=== PATIENT | female | born 2000 | race Caucasian/White ===

== ENCOUNTER 2021-02-21 22:08 | Emergency (ER) | payer OTHER, SELFPAY ==
[2021-02-21 22:11] VITALS: BP 136/74; PULSE 108; RESP 18; TEMP 36.8; O2SAT 97; BMI 20.3
[2021-02-21 22:38] LABS: Appearance Urine CLEAR; Color Urine YELLOW; Glucose Urine UA NEG (NEG); Leukocyte Esterase Urine NEG (NEG); Nitrite Urine NEG (NEG); Specific Gravity - Urine >= 1.030 (1.005-1.025); Urine Blood NEG (NEG); Urine Ketones >=80 MG/DL (NEG); Urine Protein TRACE MG/DL (NEG-TRACE)
[2021-02-21 22:40] LABS: UPreg QC Valid YES; Urine Pregnancy NEGATIVE (NEGATIVE)
[2021-02-21 22:41] LABS: COVID-19 Test Negative (Negative); IDNOW Serial# 9DD0AD1C
[2021-02-21 23:04] LABS: MANUAL DIFF FLAG NO
[2021-02-21 23:06] LABS: Basophils Percent Auto 0.3 % (0-2); Eosinophils Percent Auto 0.4 % (0-4); Hematocrit 35.4 % (37-47); Hemoglobin 12.6 g/dl (12.0-16.0); Imm Gran Abs Auto 0.03 X10*3/uL (0.00-0.03); Imm Gran Pct Auto 0.3 % (0.0-0.4); Lymphocytes Absolute Auto 1.5 X10*3/uL (1.2-4.9); Lymphocytes Percent Auto 15.1 % (20-40); Mean Corpuscular HGB Conc 35.6 g/dl (31.0-35.0); Mean Corpuscular Hemoglobin 29.9 pg (27.0-33.0); Mean Corpuscular Volume 83.9 fL (80-98); Mean Platelet Volume 9.6 fL (9.4-12.3); Monocytes Absolute Auto 0.4 X10*3/uL (0.1-1.2); Monocytes Percent Auto 4.4 % (2-11); Neutrophils Percent Auto 79.5 % (45-73); Platelet Count 197 X10*3/uL (160-400); Red Blood Count 4.22 X10*6/uL (4.20-5.50); Red Cell Distribution Width 11.4 % (11.0-16.0)
[2021-02-21 23:22] LABS: Alanine Aminotransferase 18 U/L (0-31); Albumin Level 4.4 g/dL (3.5-5.0); Alkaline Phosphatase 70 U/L (39-117); Anion Gap 12 (12-20); Aspartate Amino Transferase 19 U/L (5-31); Bilirubin Direct 0.2 mg/dL (0.0-0.5); Bilirubin Total 0.4 mg/dL (0.0-1.0); Blood Urea Nitrogen 13 mg/dL (9-16); Calcium 9.3 mg/dL (8.4-10.2); Carbon Dioxide 22 mmol/L (22-29); Chloride 106 mmol/L (96-108); Creatinine Clr Calc Pharmacy 109.9; Estimated Glomerular Filt Rate > 60; Glucose Random 106 mg/dL (60-115); Lipase 27 U/L (8-78); Potassium 4.2 mmol/L (3.3-5.1); Sodium 136 mmol/L (135-145); Total Protein 7.4 g/dL (6.5-8.0)
--- NOTE | 2021-02-21 23:32 | ED_ITS ---
HPI - General Adult General Chief complaint: Nausea/Vomiting/Diarrhea Stated complaint: Flu like Time Seen by Provider: 02/21/21 23:08 Source: patient Mode of arrival: ambulatory Limitations: no limitations History of Present Illness HPI narrative: sore throat, myalgias, vomiting, diarrhea. Patient vomited blood the last time. Patient had only one shot of COVID vaccine, Had covid last May. Onset (ago): hour(s) Severity: mild Related Data Previous Rx's Medication Instructions Recorded ondansetron HCl 4 mg tablet 4 mg PO Q8H PRN #10 tab 02/21/21 (Zofran) pantoprazole 40 mg tablet,delayed 40 mg PO DAILY #20 tab 02/21/21 release (Protonix) Allergies Allergy/AdvReac Type Severity Reaction Status Date / Time No Known Allergies Allergy Verified 02/21/21 22:11 Review of Systems Constitutional: Constitutional: Reports no additional constitutional co mplaints Eyes: Eyes: Reports no additional eye complaints ENT: Denies dizziness Cardiovascular: Cardiovascular: Reports no additional cardiovascular complaints Respiratory: Respiratory: Reports as per HPI Gastrointestinal: Gastrointestinal: Reports no additional gastrointestinal complaints Genitourinary: Genitourinary: Reports no additional female genitourinary complaints Musculoskeletal: Musculoskeletal: Reports no additional musculoskeletal complaints Integumentary/Breasts: Skin/Breast: Denies rash Neurologic: Reports system reviewed and no additional complaints, except as documented, Denies dizziness and Denies Sensory deficit (Neuro) Psychiatric: Psychiatric: Denies anxiety [facility] Past Medical History Medical History No known health problems Social History Social History Advance Directives: No Advance Directives Information Provided: Yes Physical Exam Vital Signs: Vital Signs: Last Vital Signs Temp 98.2 F 02/21/21 22:11 Pulse 108 H 02/21/21 22:11 Resp 18 02/21/21 22:11 BP 136/74 02/21/21 22:11 Pulse Ox 97 02/21/21 22:11 Body Mass Index 20.3 Const: General: healthy appearing Nutritional Appearance: average body habitus Orientation/consciousness: oriented to person and patient oriented x3 Limitations: no limitations HENMT: Head: Yes normal to inspection Ears: external ears normal General nose exam: Normal external nose present Mouth: Normal oral and palatal mucosa present and oropharynx normal Throat: Yes posterior oropharynx normal Eyes: General: appearance normal, both eyes and all related structures Neck: Other: supple Neck: Yes normal visual inspection Chest: Chest palpation & inspection: normal inspection of the chest Resp: Auscultation: clear to auscultation bilaterally Cardio: Jugular venous distension: no JVD Rate: regular rate Rhythm: regular rhythm Heart sounds: S1 normal heart sound present and S2 normal heart sound present GI: Inspection: Yes normal to inspection Palpation (GI): Soft to palpation, nontender and No hepatosplenomegaly present Auscultation: normal bowel sounds : General: Yes no CVA tenderness Back/Spine/Pelvis: Back: no CVA tenderness Skin: General skin exam: no rashes or lesions noted Neuro: General: oriented to person and patient oriented x3 Cranial nerves: Yes CN's II-XII intact bilaterally Motor exam (neuro): 5/5 motor strength present throughout Sensory Exam: No Sensory deficit (Neuro) Extrem: General: Yes normal to inspection Psych: Appearance: grossly normal Course Reevaluation(s) Reevaluation #1: no black stool, no blood in stool, picture shows blood on the crackers she threw up, not mixed in. My impression is ba gimenez tear will dc on zofran and protonix Time: 23:41 Medical Decision Making Lab Data Result diagrams: 02/21/21 22:57 02/21/21 22:57 Labs: Lab Results 02/21/21 02/21/21 02/21/21 Range/Units 22:20 22:28 22:28 WBC (4.8-10.8) X10*3/uL RBC (4.20-5.50) X10*6/uL Hgb (12.0-16.0) g/dl Hct (37-47) % MCV (80-98) fL MCH (27.0-33.0) pg MCHC (31.0-35.0) g/dl RDW (11.0-16.0) % Plt Count (160-400) X10*3/uL MPV (9.4-12.3) fL Immature Gran % (Auto) (0.0-0.4) % Neut % (Auto) (45-73) % Lymph % (Auto) (20-40) % [place] % (Auto) (2-11) % Eos % (Auto) (0-4) % Baso % (Auto) (0-2) % Lymph # (Auto) (1.2-4.9) X10*3/uL [place] # (Auto) (0.1-1.2) X10*3/uL Eos # (Auto) (0.0-0.4) X10*3/uL Baso # (Auto) (0.0-0.2) X10*3/uL Abs Immat Gran (auto) (0.00-0.03) X10*3/uL Absolute Neuts (auto) (2.0-8.3) X10*3/uL Absolute Nucleated RBC (0.0-0.012) X10*3/uL Nucleated RBC % (auto) (0.0-0.2) /100WBC Sodium (135-145) mmol/L Potassium (3.3-5.1) mmol/L Chloride (96-108) mmol/L Carbon Dioxide (22-29) mmol/L Anion Gap (12-20) BUN (9-16) mg/dL Creatinine (0.5-1.4) mg/dL Estim Creat Clear Calc Estimated GFR Random Glucose (60-115) mg/dL Calcium (8.4-10.2) mg/dL Total Bilirubin (0.0-1.0) mg/dL Direct Bilirubin (0.0-0.5) mg/dL AST (5-31) U/L ALT (0-31) U/L Alkaline Phosphatase (39-117) U/L Total Protein (6.5-8.0) g/dL Albumin (3.5-5.0) g/dL Lipase (8-78) U/L Urine Color YELLOW Urine Appearance CLEAR Urine pH 6.0 (5.0-8.0) Ur Specific [place] >= 1.030 H (1.005-1.025) Urine Protein TRACE (NEG-TRACE) MG/DL Urine Glucose (UA) NEG (NEG) MG/DL Urine Ketones >=80 (NEG) MG/DL Urine Blood NEG (NEG) Urine Nitrite NEG (NEG) Ur Leukocyte Esterase NEG (NEG) Urine Test NEGATIVE (NEGATIVE) COVID-19 (KRISTAL) Negative (Negative) COVID-19 Clin Com See Note 02/21/21 02/21/21 Range/Units 22:57 22:57 WBC 10.0 (4.8-10.8) X10*3/uL RBC 4.22 (4.20-5.50) X10*6/uL Hgb 12.6 (12.0-16.0) g/dl Hct 35.4 L (37-47) % MCV 83.9 (80-98) fL MCH 29.9 (27.0-33.0) pg MCHC 35.6 H (31.0-35.0) g/dl RDW 11.4 (11.0-16.0) % Plt Count 197 (160-400) X10*3/uL MPV 9.6 (9.4-12.3) fL Immature Gran % (Auto) 0.3 (0.0-0.4) % Neut % (Auto) 79.5 H (45-73) % Lymph % (Auto) 15.1 L (20-40) % [place] % (Auto) 4.4 (2-11) % Eos % (Auto) 0.4 (0-4) % Baso % (Auto) 0.3 (0-2) % Lymph # (Auto) 1.5 (1.2-4.9) X10*3/uL [place] # (Auto) 0.4 (0.1-1.2) X10*3/uL Eos # (Auto) 0.0 (0.0-0.4) X10*3/uL Baso # (Auto) 0.0 (0.0-0.2) X10*3/uL Abs Immat Gran (auto) 0.03 (0.00-0.03) X10*3/uL Absolute Neuts (auto) 8.0 (2.0-8.3) X10*3/uL Absolute Nucleated RBC 0.000 (0.0-0.012) X10*3/uL Nucleated RBC % (auto) 0.0 (0.0-0.2) /100WBC Sodium 136 (135-145) mmol/L Potassium 4.2 (3.3-5.1) mmol/L Chloride 106 (96-108) mmol/L Carbon Dioxide 22 (22-29) mmol/L Anion Gap 12 (12-20) BUN 13 (9-16) mg/dL Creatinine 0.76 (0.5-1.4) mg/dL Estim Creat Clear Calc 109.9 Estimated GFR > 60 Random Glucose 106 (60-115) mg/dL Calcium 9.3 (8.4-10.2) mg/dL Total Bilirubin 0.4 (0.0-1.0) mg/dL Direct Bilirubin 0.2 (0.0-0.5) mg/dL AST 19 (5-31) U/L ALT 18 (0-31) U/L Alkaline Phosphatase 70 (39-117) U/L Total Protein 7.4 (6.5-8.0) g/dL Albumin 4.4 (3.5-5.0) g/dL Lipase 27 (8-78) U/L Urine Color Urine Appearance Urine pH (5.0-8.0) Ur Specific [place] (1.005-1.025) Urine Protein (NEG-TRACE) MG/DL Urine Glucose (UA) (NEG) MG/DL Urine Ketones (NEG) MG/DL Urine Blood (NEG) Urine Nitrite (NEG) Ur Leukocyte Esterase (NEG) Urine Test (NEGATIVE) COVID-19 (RKISTAL) (Negative) COVID-19 Clin Com Discharge Plan Discharge Clinical Impression: Gastroenteritis, Ba-Gimenez tear Patient Disposition: Home, Self-Care Instructions: Ba-Gimenez Syndrome (ED) Prescriptions: New ondansetron HCl [Zofran] 4 mg tablet 4 mg PO Q8H PRN (Reason: nausea and vomiting) Qty: 10 RF: 0 pantoprazole [Protonix] 40 mg tablet,delayed release (DR/EC) 40 mg PO DAILY Qty: 20 RF: 0 Referrals: Physician,Unknown [Primary Care Provider] - 1 week Stand Alone Forms: Work/School Release
[2021-02-21] MEDS: Famotidine 20 MG TABLET PO (23:45)
[2021-02-21 23:47] VITALS: BP 111/65; PULSE 84; RESP 16; O2SAT 98
== END 2021-02-22 00:11 | disposition home or self-care (01) ==
LOC: HO.ED 23:59
PROVIDERS: Emergency Provider Emergency Medicine
DX: K52.9 Noninfective gastroenteritis and colitis, unspecified (principal); K22.6 Gastro-esophageal laceration-hemorrhage syndrome; R11.2 Nausea with vomiting, unspecified; Z20.822 Contact with and (suspected) exposure to COVID-19; Z79.899 Other long term (current) drug therapy
CPT/HCPCS: 36415; 80048; 80076; 81003; 81025; 83690; 85025; 87635; 99283; 99284

== ENCOUNTER 2022-08-26 19:28 | Emergency (ER) | payer OTHER, SELFPAY ==
--- NOTE | ~2022-08-26 | US_ITS ---
EXAMINATION: US VENOUS WITH DOPPLER UPPER EXTREMITY, RIGHT CLINICAL INFORMATION: Erythema and swelling. COMPARISON: None available. TECHNIQUE: Ultrasound of the upper extremity is performed using compression sonography and color and pulse Doppler flow with assessment of augmentation of flow. There is also imaging and Doppler assessment of the jugular and subclavian veins. Spectral analysis with color-flow imaging is performed. FINDINGS: There is noncompressible thrombus seen within the right mid to distal basilic vein segments. The right internal jugular, subclavian, axillary, brachial,, cephalic, radial and ulnar vein segments are patent. US/US venous duplex UE RT IMPRESSION: Noncompressible thrombus is demonstrated within the mid to distal right basilic vein segments. This critical result was discussed with Estephania Nurse Practitioner at 9:00 PM on 08/26/2022, and it was ascertained that the content and urgency of the report was understood at the time of direct communication.
[2022-08-26 19:41] VITALS: BP 136/81; PULSE 138; RESP 18; TEMP 37.7; O2SAT 99; BMI 21.1
--- NOTE | 2022-08-26 19:44 | ED.UPPEXIN ---
HPI - Extremity Injury (Upper) General Chief Complaint: Extremity Injury, Upper <RUI Tran - Last Filed: 08/26/22 19:46> Stated Complaint: R arm pain, tingling, no injury <RUI Tran - Last Filed: 08/26/22 19:46> Time Seen by Provider: 08/26/22 22:04 <RUI Tran - Last Filed: 08/26/22 19:46> Source: patient <Estephania Bourne NP - Last Filed: 08/27/22 00:35> Mode of arrival: ambulatory <Estephania Bourne NP - Last Filed: 08/27/22 00:35> Limitations: no limitations <Estephania Bourne NP - Last Filed: 08/27/22 00:35> History of Present Illness HPI narrative: 21 year female presents with right arm pain numbness tingling soreness and swelling that started about a week ago. Pain has gradually increased so has the swelling. She had an IV to the right antecubital space for general anesthesia for wisdom teeth removal. She noted this site to be tender after IV removal. <Estephania Bourne NP - Last Filed: 08/27/22 00:35> MD complaint: injury to: right and arm <Estephania Bourne NP - Last Filed: 08/27/22 00:35> Onset (ago): week(s) (1) <Estephania Bourne NP - Last Filed: 08/27/22 00:35> Other injuries: none <Estephania Bourne NP - Last Filed: 08/27/22 00:35> Handedness: right <Estephania Bourne NP - Last Filed: 08/27/22 00:35> Place: other (Medical procedure) <Estephania Bourne NP - Last Filed: 08/27/22 00:35> Severity: moderate <Estephania Bourne NP - Last Filed: 08/27/22 00:35> Severity scale (1-10): 7 <SHERIE Andrade Last Filed: 08/27/22 00:35> Relieving factors: immobilization <Estephania Bourne NP - Last Filed: 08/27/22 00:35> Exacerbating factors: movement of extremity <Estephnaia Bourne NP - Last Filed: 08/27/22 00:35> Context: other (IV start site) <Estephania Bourne NP - Last Filed: 08/27/22 00:35> Associated symptoms: numbness and other (Swelling) <Estephania Bourne NP - Last Filed: 08/27/22 00:35> Treatments prior to arrival: cold therapy <SHERIE Andrade Last Filed: 08/27/22 00:35> Related Data Home Medications: Previous Rx's Medication Instructions Recorded ondansetron HCl 4 mg tablet 4 mg PO Q8H PRN nausea and 02/21/21 (Zofran) vomiting #10 tabs pantoprazole 40 mg tablet,delayed 40 mg PO DAILY #20 tabs 02/21/21 release (Protonix) apixaban 5 mg (74 tabs) tablets in 5 mg PO BID #74 ea 08/26/22 a dose pack (Eliquis DVT-PE Treat 30D Start) <RUI Tran - Last Filed: 08/26/22 19:46> Allergies/Adverse Reactions: Allergies Allergy/AdvReac Type Severity Reaction Status Date / Time No Known Allergies Allergy Verified 02/21/21 22:11 <RUI Tran - Last Filed: 08/26/22 19:46> Review of Systems Review of Systems: Constitutional: No Fever, No Chills Cardiovascular: No Chest Pain, No SOB Respiratory: No Cough, No Dyspnea Gastrointestinal: No Nausea, No Vomiting, No Diarrhea, No abdominal Pain Genitourinary: No Dysuria, No Hematuria Musculoskeletal: positive right arm swelling and pain, No Myalgias, No Joint Swelling Skin: No Skin lacerations, No rash Neuro: No Weakness, positive right arm Numbness, positive right arm Paresthesias, No Loss of Consciousness, No Dizziness, No Headache <SHERIE Andrade Last Filed: 08/27/22 00:35> Yes all other systems are reviewed and are negative <SHERIE Andrade Last Filed: 08/27/22 00:35> PMFSH Past Medical History Attestation statement: The following information was validated with the patient. <SHERIE Andrade Last Filed: 08/27/22 00:35> Source: old records reviewed <Estephania Bourne NP - Last Filed: 08/27/22 00:35> Medical History: Medical History No known health problems <RUI Tran - Last Filed: 08/26/22 19:46> Social History Social History: Social History Advance Directives: No Advance Directives Information Provided: No <RUI Tran - Last Filed: 08/26/22 19:46> Physical Exam Vital Signs: Vital Signs: Last Vital Signs Temp 99.9 F 08/26/22 19:41 Pulse 138 H 08/26/22 19:41 Resp 18 08/26/22 19:41 BP 136/81 08/26/22 19:41 Pulse Ox 99 08/26/22 19:41 O2 Del Method Room Air 08/26/22 19:41 BMI result Body Mass Index 21.1 <RUI Tran - Last Filed: 08/26/22 19:46> Vital Signs: Last Vital Signs Temp 99.9 F 08/26/22 19:41 Pulse 138 H 08/26/22 19:41 Resp 18 08/26/22 19:41 BP 136/81 08/26/22 19:41 Pulse Ox 99 08/26/22 19:41 O2 Del Method Room Air 08/26/22 19:41 BMI result Body Mass Index 21.1 <Estephania Bourne NP - Last Filed: 08/27/22 00:35> Appearance: Alert. Oriented X3. Mild distress. Eyes: Pupils equal, round and reactive to light. Neck: Normal inspection. Neck supple. CVS: Normal heart rate and rhythm. Pulses normal. Respiratory: No respiratory distress. Breath sounds normal. Skin: Skin warm and dry. Normal skin color. Normal skin turgor. Extremities: Right extremity swollen from the antecubital space to the mid bicep. Bruising noted to the ulnar aspect from olecranon to mid biceps full range of motion to digits, wrist, brisk capillary refill equal pulses. Neurovascularly intact. Neuro: No motor deficit. No sensory deficit. Cranial nerves 2-12 intact. <Estephania Bourne NP - Last Filed: 08/27/22 00:35> Course Course Course Narrative: RME - 21 y/o female presents to the ER for evaluation of right upper arm pain, swelling, slight redness that started about 1 week ago. Had wisdom teeth out 2 weeks ago under anesthesia and had IV in that arm. Was on pain meds and NSAIDS post-op. Reports worsening swelling today and now has some tingling down into the lower arm. She is on OCP and worried about a blood clot. Tachycardic 110 in triage, anxious. Exam more c/w superficial thrombophelmbitis but will get US doppler to r/o DVT. <RUI Tran - Last Filed: 08/26/22 19:46> RME - 21 y/o female presents to the ER for evaluation of right upper arm pain, swelling, slight redness that started about 1 week ago. Had wisdom teeth out 2 weeks ago under anesthesia and had IV in that arm. Was on pain meds and NSAIDS post-op. Reports worsening swelling today and now has some tingling down into the lower arm. She is on OCP and worried about a blood clot. Tachycardic 110 in triage, anxious. Exam more c/w superficial thrombophelmbitis but will get US doppler to r/o DVT. 21:00 21-year-old female presented for a right arm swelling and pain, suspected to be phlebitis from an IV start site. Provider in triage ordered venous duplex of the right upper extremity. [facility] called to report DVT positive. Discussion with patient regarding history, patient is on control, no history of clotting factor deficiencies, is not immunocompromised, no other injuries reported. Patient does not report any shortness of breath, pain on inspiration, tachycardia, diaphoresis, dizziness, weakness the, changes in vision. Plan of care is to treat with Eliquis, will give 1st dose here, patient also does not have a primary care physician. Will refer to Dr. Martinez for vascular, and Dr. Leung for primary care is tablets minute. I did inform the patient that she may need to be on blood thinners for quite some time, and that she should follow-up with urgent care as well as Dr. Martinez. She does understand that it may take her several months to become established with a primary care. Patient agrees to discontinue control, understands instructions for Eliquis. Patient verbalized understanding of and agrees with plan of care discharge home. Verbalized understanding of signs and symptoms indicating need for emergent intervention. <Estephania oBurne NP - Last Filed: 08/27/22 00:35> Consultations Consultation #1: Michelle <Estephania Bourne NP - Last Filed: 08/27/22 00:35> Time: 22:45 <Estephania Bourne NP - Last Filed: 08/27/22 00:35> Medications Administered Discontinued Medications Generic Name Dose Route Start Last Admin Trade Name Freq PRN Reason Stop Dose Admin Apixaban 10 mg 08/26/22 22:32 08/26/22 22:39 Apixaban 5 Mg Tablet PO 08/26/22 22:33 10 mg ONCE ONE Administration <RUI Tran - Last Filed: 08/26/22 19:46> Medications Administered Discontinued Medications Generic Name Dose Route Start Last Admin Trade Name Freq PRN Reason Stop Dose Admin Apixaban 10 mg 08/26/22 22:32 08/26/22 22:39 Apixaban 5 Mg Tablet PO 08/26/22 22:33 10 mg ONCE ONE Administration <Estephania Bourne NP - Last Filed: 08/27/22 00:35> Medical Decision Making Differential Diagnosis Differential Diagnoses: The differential diagnosis associated with the presentation includes <Estephania Bourne NP - Last Filed: 08/27/22 00:35> DVT, phlebitis <Estephania Bourne NP - Last Filed: 08/27/22 00:35> Consult Healthcare Provider Management of the patient was discussed with: Wrapper Leaf Inspector <Estephania Bourne NP - Last Filed: 08/27/22 00:35> Dr. Martinez <Estephania Bourne NP - Last Filed: 08/27/22 00:35> Independent Interpretation I performed an independent interpretation of an: Ultrasound <Estephania Bourne NP - Last Filed: 08/27/22 00:35> Interpretation: EXAMINATION:? US VENOUS WITH DOPPLER UPPER EXTREMITY, RIGHT CLINICAL INFORMATION:? Erythema and swelling. COMPARISON:? None available. TECHNIQUE: Ultrasound of the upper extremity is performed using compression sonography and color and pulse Doppler flow with assessment of augmentation of flow. There is also imaging and Doppler assessment of the jugular and subclavian veins. Spectral analysis with color-flow imaging is performed. FINDINGS: There is noncompressible thrombus seen within the right mid to distal basilic vein segments. The right internal jugular, subclavian, axillary, brachial,, cephalic, radial and ulnar vein segments are patent. US/US venous duplex UE RT IMPRESSION: Noncompressible thrombus is demonstrated within the mid to distal right basilic vein segments. ? ? This critical result was discussed with Estephania Nurse Practitioner at 9:00 PM on 08/26/2022, and it was ascertained that the content and urgency of the report was understood at the time of direct communication. ? <Estephania Bourne NP - Last Filed: 08/27/22 00:35> Radiology Impression Discussion of test interpretation with radiology: I discussed test interpretation with the radiologist and I have reviewed the radiologist's reading. <Estephania Bourne NP - Last Filed: 08/27/22 00:35> Independent Historian Clinical information obtained from an independent historian. History obtained from or confirmed by: Parent <Estephania Bourne NP - Last Filed: 08/27/22 00:35> External Record Review External record reviewed: Outpatient record and Prior outpatient labs <SHERIE Andrade Last Filed: 08/27/22 00:35> Prescription Management I considered prescription management with: Other (Anticoagulation) <SHERIE Andrade Last Filed: 08/27/22 00:35> Discharge Plan Discharge Clinical Impression: Acute deep vein thrombosis (DVT) of right upper extremity <RUI Tran - Last Filed: 08/26/22 19:46> Patient Disposition: Home, Self-Care <RUI Tran - Last Filed: 08/26/22 19:46> Instructions: Deep Vein Thrombosis (ED), Deep Vein Thrombosis Prevention (ED) <RUI Tran - Last Filed: 08/26/22 19:46> Additional Instructions: Your evaluated for right arm pain and swelling. Venous duplex indicates a thrombus, DVT, in the right distal basilic vein. Please take Eliquis as directed. Follow-up with Dr. Martinez, vascular surgeon. Please call and request an appointment for evaluation. Please stop taking your control pills. You may need to find another method for contraception. Alternate Tylenol 650 mg every 6 hours and Motrin 600 mg every 6 hours as needed for pain and fever management. Consider taking these medications 3 hours apart so you have pain and fever management every 3 hours. Write down what time you take these medications to prevent accidental overdose. Motrin is the same medication as Advil and ibuprofen. Tylenol is the same medication as acetaminophen. For primary care, I have referred you to Dr. Leung at the [facility] walk-in [place]. You may present to urgent care for primary care needs until you become established as a patient. It may take several months for you to be established with a primary care. Thank you for choosing this emergency department for evaluation. Please follow-up with primary care physician as needed. Return to the emergency department for any new, concerning, or worsening symptoms. <RUI Tran - Last Filed: 08/26/22 19:46> Prescriptions: New Eliquis DVT-PE Treat 30D Start 5 mg (74 tabs) tablets,dose pack 5 mg PO BID Qty: 74 0RF Rx Instructions: Right arm DVT No Action ondansetron HCl [Zofran] 4 mg tablet 4 mg PO Q8H PRN (Reason: nausea and vomiting) Qty: 10 0RF pantoprazole [Protonix] 40 mg tablet,delayed release (DR/EC) 40 mg PO DAILY Qty: 20 0RF <RUI Tran - Last Filed: 08/26/22 19:46> Referrals: Giorgi Martinez MD [Physician] - 2 days (right arm dvt) Vinny Leung MD [Physician] - 1 week (Establish primary care, DVT to the right upper extremity) <RUI Tran - Last Filed: 08/26/22 19:46> Stand Alone Forms: Work/School Release <RUI Tran - Last Filed: 08/26/22 19:46> Interventions: ED Discharge Assessment Last Done: 08/26/22 22:59 <RUI Tran Last Filed: 08/26/22 19:46> Discharge Date/Time: 08/26/22 22:59 <RUI Tran - Last Filed: 08/26/22 19:46>
[2022-08-26] MEDS: Apixaban 5 MG TABLET 10 MG PO (22:39)
== END 2022-08-26 22:59 | disposition home or self-care (01) ==
PROVIDERS: Emergency Provider Internal Medicine
DX: I82.621 Acute embolism and thrombosis of deep veins of right upper extremity (principal); R60.0 Localized edema; M79.601 Pain in right arm; Z79.899 Other long term (current) drug therapy
CPT/HCPCS: 93971; 99282; 99284

== ENCOUNTER 2022-10-09 09:09 | Emergency (ER) | payer OTHER, SELFPAY ==
--- NOTE | 2022-10-09 | ECG_ITS ---
Test Reason : chest pain Blood Pressure : / mmHG Vent. Rate : 094 BPM Atrial Rate : 094 BPM P-R Int : 142 ms QRS Dur : 078 ms QT Int : 344 ms P-R-T Axes : 084 086 043 degrees QTc Int : 430 ms Normal sinus rhythm with sinus arrhythmia Possible Left atrial enlargement Borderline ECG No previous ECGs available Referred By: Generic ED Physician Electronically Signed By:Dominguez Pineda
--- NOTE | ~2022-10-09 | CT_ITS ---
EXAMINATION: CT ANGIOGRAM OF THE CHEST WITH AND WITHOUT CONTRAST (CT PULMONARY ANGIOGRAM FOR PE) CLINICAL INFORMATION: Reason for Exam recent DVT, chest pressure COMPARISON: None TECHNIQUE: Prior to contrast administration, noncontrast localization images were obtained. Subsequently, multidetector volumetric imaging was performed from the thoracic inlet to below the diaphragms following the administration of 65 mL Omnipaque 350 intravenous contrast. No contrast reaction reported Sagittal, coronal, and MIP oblique sagittal reformatted images were obtained on the CT workstation, uploaded to PACS, and reviewed. This CT examination was performed using dose optimization techniques as appropriate, variously including the following: *Automated exposure control *Adjustment of mA and/or kV according to patient size (this includes techniques or standardized protocols for targeted exams where dose is matched to indication/reason for exam; i.e. extremities or head) *Use of iterative reconstruction technique Total exam dose-length product 170 mGy-cm FINDINGS: QUALITY OF STUDY/CONTRAST BOLUS: Satisfactory. PULMONARY ARTERIES: No pulmonary emboli. THORACIC AORTA: No thoracic aortic aneurysm or dissection. LUNG: No focal consolidation, suspicious nodules, or suspicious masses. There are some scattered sub-4 mm densities present. Central airways are patent. No bronchial wall thickening or bronchiectasis appreciated. PLEURA: No pleural effusion or pneumothorax. MEDIASTINUM: Normal heart size. No pericardial effusion. No hilar or mediastinal lymphadenopathy. No evidence of septal bowing or right heart strain. CORONARY ARTERY CALCIFICATION: None visualized on this study. CHEST WALL/AXILLA: No axillary or internal mammary lymphadenopathy. OSSEOUS STRUCTURES: No acute or suspicious osseous abnormality. UPPER ABDOMEN: Unremarkable. No reflux of contrast into the hepatic veins to suggest elevated right heart pressures. CT/CT angio chest PE protocol IMPRESSION: No evidence of acute pulmonary artery embolus. No thoracic aortic aneurysm or dissection. VTE: negative
[2022-10-09 09:14] VITALS: BP 117/79; PULSE 102; RESP 18; TEMP 36.9; O2SAT 98; BMI 21.9
[2022-10-09 09:34] LABS: MANUAL DIFF FLAG NO
[2022-10-09 09:35] LABS: Basophils Percent Auto 0.6 % (0-2); Eosinophils Absolute Auto 0.1 X10*3/uL (0.0-0.4); Eosinophils Percent Auto 2.2 % (0-4); Hematocrit 38.4 % (37.0-47.0); Hemoglobin 13.7 g/dl (12.0-16.0); Imm Gran Abs Auto 0.01 X10*3/uL (0.00-0.03); Imm Gran Pct Auto 0.2 % (0.0-0.4); Lymphocytes Percent Auto 40.6 % (20-40); Mean Corpuscular HGB Conc 35.7 g/dl (31.0-35.0); Mean Corpuscular Hemoglobin 29.8 pg (27.0-33.0); Mean Corpuscular Volume 83.5 fL (80.0-98.0); Mean Platelet Volume 9.4 fL (9.4-12.3); Monocytes Absolute Auto 0.3 X10*3/uL (0.1-1.2); Monocytes Percent Auto 5.8 % (2-11); Neutrophils Absolute Auto 2.5 x10*3/uL (2.0-8.3); Neutrophils Percent Auto 50.6 % (45-73); Platelet Count 277 X10*3/uL (160-400); Red Cell Distribution Width 11.7 % (11.0-16.0)
[2022-10-09 09:56] LABS: Alanine Aminotransferase 16 U/L (0-31); Albumin Level 4.6 g/dL (3.5-5.0); Alkaline Phosphatase 72 U/L (39-117); Anion Gap 11 (12-20); Aspartate Amino Transferase 16 U/L (5-31); Blood Urea Nitrogen 13 mg/dL (9-16); Calcium 9.9 mg/dL (8.4-10.2); Carbon Dioxide 24 mmol/L (22-29); Chloride 108 mmol/L (96-108); Creatinine Clr Calc Pharmacy 108.1; Estimated Glomerular Filt Rate > 60; Glucose Random 115 mg/dL (60-115); Potassium 4.3 mmol/L (3.3-5.1); Sodium 139 mmol/L (135-145); Total Protein 7.5 g/dL (6.5-8.0)
[2022-10-09 10:08] LABS: Troponin-I High Sensitivity < 2.7 ng/L (<3.5-17.0)
--- NOTE | 2022-10-09 10:30 | ED.CHESTPAIN ---
HPI - Chest Pain General Chief Complaint: Chest Pain Stated Complaint: L side chest tightness/pressure Time Seen by Provider: 10/09/22 10:30 Source: patient Mode of arrival: ambulatory Limitations: no limitations History of Present Illness HPI narrative: Patient is a 21-year-old female recently diagnosed with right upper extremity DVT on 08/26/2022 and started on Eliquis at that time presenting to the emergency department with chest pressure since yesterday morning. She reports the pressure is to the left anterior chest as well as under her left breast and has been constant since onset, has not improved or worsened in intensity since onset. She denies any shortness of breath or difficulty breathing. She reports that she has been taking her Eliquis as prescribed and has not had any interruption in taking this medication. She reports that she recently had a Nexplanon implant placed to her left upper arm 2 weeks ago. She states pain is not worse with deep inspiration. 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 She denies any cough, fever, or other URI symptoms. MD complaint: chest heaviness Pertinent past history: other (RUE DVT) Onset (ago): day(s) Timing of current episode: constant Prior episodes: No Onset: awoke with symptoms Pain location: left chest Pain radiation: none Severity: mild Quality: heaviness Relieving factors: nothing Exacerbating factors: nothing Context: new medications (Nexplanon implant placed 2 wks ago) and history of DVT/PE Treatment prior to arrival: none Related Data Previous Rx's Medication Instructions Recorded apixaban 5 mg tablet (Eliquis) 5 mg PO BID #60 tabs 09/17/22 Allergies Allergy/AdvReac Type Severity Reaction Status Date / Time No Known Allergies Allergy Verified 10/09/22 09:17 Review of Systems Review of Systems: As per HPI Yes all other systems are reviewed and are negative Constitutional: Constitutional: Reports as per HPI PMFSH Past Medical History Medical History (Updated 10/09/22 @ 13:19 by Xochitl Elizondo NP) No known health problems Surgical History (Updated 09/17/22 @ 14:55 by Miranda Campa MD) Canon teeth extracted Family History Family History (Updated 09/17/22 @ 14:41 by Reta Frazier) Other No family history of cancer Social History Social History (Updated 09/17/22 @ 14:41 by Reta Frazier) Household Members: Significant Other Patient Tobacco Use Status: Never used Tobacco Smoked in Last 30 Days: No Use of substances other than those prescribed or required for medical reasons: Yes Substance Use Type: Marijuana Substance Use Frequency: Weekly Advance Directives: No service: No Current occupational status: employed Gender identity: Female Physical Exam Vital Signs: Vital Signs: Last Vital Signs Temp 98.9 F 10/09/22 12:25 Pulse 79 10/09/22 12:25 Resp 14 10/09/22 12:25 BP 100/58 L 10/09/22 12:25 Pulse Ox 100 10/09/22 12:25 O2 Del Method Room Air 10/09/22 12:25 BMI result Body Mass Index 21.9 Const: General: cooperative, healthy appearing and no acute distress Orientation/consciousness: oriented to person, oriented to place, oriented to time and patient oriented x3 Limitations: no limitations HEENT: Head: Yes normocephalic and Yes atraumatic Ears: external ears normal General nose exam: Normal external nose present Face and sinus: Yes face symmetric Mouth: oropharynx normal and moist mucous membranes Throat: Yes uvula midline Eyes: Pupils: Equal, round and reactive pupils present Neck: Neck: Yes normal visual inspection and Yes supple Chest: Chest palpation & inspection: normal inspection of the chest Resp: Effort & Inspection: normal respiratory effort and able to speak in complete sentences Auscultation: clear to auscultation bilaterally Cardio: Rate: regular rate Rhythm: regular rhythm Heart sounds: S1 normal heart sound present and S2 normal heart sound present GI: Palpation (GI): Soft to palpation and nontender Auscultation: normoactive bowel sounds : General: Yes no CVA tenderness Back/Spine/Pelvis: Back: no CVA tenderness Skin: General skin exam: elasticity normal and turgor normal Neuro: General: oriented to person, oriented to place, oriented to time, patient oriented x3, moves all extremities, no focal motor deficits and CN's II-XI intact bilaterally Cranial nerves: Yes Equal, round and reactive pupils present Cognition (Neuro): normal cognition Extrem: General: Yes full ROM, Yes no pedal edema and Yes no calf tenderness Right upper extremity: normal to inspection, normal capillary refill, shoulder/upper arm Details: normal to inspection; no tenderness and no swelling and Extremity exam: right hand Details: normal capillary refill and vascular exam Details: radial pulse present Details: 2+ Left upper extremity: normal to inspection, shoulder/upper arm Details: abnormal to inspection Details: other (palpable Nexplanon implant medial upper arm) and hand Details: normal capillary refill and vascular exam Details: radial pulse present Details: 2+ Psych: Mental Status: mental status grossly normal Affect: normal affect Thought process: Normal thought process present Course Reevaluation(s) Reevaluation #1: FINDINGS: QUALITY OF STUDY/CONTRAST BOLUS: Satisfactory. PULMONARY ARTERIES: No pulmonary emboli.? THORACIC AORTA: No thoracic aortic aneurysm or dissection. LUNG: No focal consolidation, suspicious nodules, or suspicious masses. There are some scattered sub-4 mm densities present. Central airways are patent. No bronchial wall thickening or bronchiectasis appreciated. PLEURA: No pleural effusion or pneumothorax. MEDIASTINUM: Normal heart size.? No pericardial effusion.? No hilar or mediastinal lymphadenopathy.? No evidence of septal bowing or right heart strain. CORONARY ARTERY CALCIFICATION: None visualized on this study. CHEST WALL/AXILLA: No axillary or internal mammary lymphadenopathy. OSSEOUS STRUCTURES: No acute or suspicious osseous abnormality.? UPPER ABDOMEN: Unremarkable.? No reflux of contrast into the hepatic veins to suggest elevated right heart pressures. CT/CT angio chest PE protocol IMPRESSION: No evidence of acute pulmonary artery embolus. No thoracic aortic aneurysm or dissection. VTE: negative Labs unremarkable, troponin negative, no evidence of PE. Discussed all results with patient and answered all questions. Feel patient is safe for discharge home, pain likely musculoskeletal. Advised patient to continue with Eliquis as prescribed and follow up with farm operations technical director. Return precautions discussed at bedside. Patient agrees with plan of care. Time: 13:12 Medications Administered Discontinued Medications Generic Name Dose Route Start Last Admin Trade Name Freq PRN Reason Stop Dose Admin Iohexol 100 ml 10/09/22 12:14 10/09/22 12:14 Iohexol 350 Mg/Ml 100 Ml Infus..Btl IV 10/09/22 12:15 65 ml ONCE ONE Administration Medical Decision Making Medical Decision Making MDM Narrative: Patient is a 21-year-old female recently diagnosed with right upper extremity DVT on 08/26/2022 and started on Eliquis at that time presenting to the emergency department with chest pressure since yesterday morning. On exam patient is awake, A+Ox3, in no acute distress, slightly tachycardic with HR of 102, VS otherwise WNL, EKG is NSR with rate of 94. Concern for PE given recent RUE DVT. Also considering pleuritic chest pain, muscle strain. Unlikely ACS, pneumothorax, aortic dissection, pericarditis/myocarditis, pneumonia, or other infectious process. Plan: labs, CTA chest for PE r/o Please refer to course for remaining clinical decision making. Differential Diagnosis Differential Diagnoses: The differential diagnosis associated with the presentation includes As above. Lab Data MDM Lab Attestation statement: I reviewed the patient's lab results. 10/09/22 09:29 10/09/22 09:29 Labs: Lab Results 10/09/22 10/09/22 10/09/22 Range/Units 09:29 09:29 09:29 WBC 5.0 (4.8-10.8) X10*3/uL RBC 4.60 (4.20-5.50) X10*6/uL Hgb 13.7 (12.0-16.0) g/dl Hct 38.4 (37.0-47.0) % MCV 83.5 (80.0-98.0) fL MCH 29.8 (27.0-33.0) pg MCHC 35.7 H (31.0-35.0) g/dl RDW 11.7 (11.0-16.0) % Plt Count 277 (160-400) X10*3/uL MPV 9.4 (9.4-12.3) fL Immature Gran % (Auto) 0.2 (0.0-0.4) % Neut % (Auto) 50.6 (45-73) % Lymph % (Auto) 40.6 H (20-40) % Wells % (Auto) 5.8 (2-11) % Eos % (Auto) 2.2 (0-4) % Baso % (Auto) 0.6 (0-2) % Lymph # (Auto) 2.0 (1.2-4.9) X10*3/uL Wells # (Auto) 0.3 (0.1-1.2) X10*3/uL Eos # (Auto) 0.1 (0.0-0.4) X10*3/uL Baso # (Auto) 0.0 (0.0-0.2) X10*3/uL Abs Immat Gran (auto) 0.01 (0.00-0.03) X10*3/uL Absolute Neuts (auto) 2.5 (2.0-8.3) x10*3/uL Absolute Nucleated RBC 0.000 (0.0-0.012) X10*3/uL Nucleated RBC % (auto) 0.0 (0.0-0.2) /100WBC Sodium 139 (135-145) mmol/L Potassium 4.3 (3.3-5.1) mmol/L Chloride 108 (96-108) mmol/L Carbon Dioxide 24 (22-29) mmol/L Anion Gap 11 L (12-20) BUN 13 (9-16) mg/dL Creatinine 0.80 (0.5-1.4) mg/dL Estim Creat Clear Calc 108.1 Estimated GFR > 60 Random Glucose 115 (60-115) mg/dL Calcium 9.9 D (8.4-10.2) mg/dL Total Bilirubin 1.0 (0.0-1.0) mg/dL AST 16 (5-31) U/L ALT 16 (0-31) U/L Alkaline Phosphatase 72 (39-117) U/L Troponin I High Sens < 2.7 (<3.5-17.0) ng/L Total Protein 7.5 (6.5-8.0) g/dL Albumin 4.6 (3.5-5.0) g/dL Independent Interpretation I performed an independent interpretation of an: CT Scan Interpretation: I independently reviewed the CT scan and agree with the radiologist's interpretation. Radiology Impression Discussion of test interpretation with radiology: I have reviewed the radiologist's reading. Radiologist Impression: FINDINGS: QUALITY OF STUDY/CONTRAST BOLUS: Satisfactory. PULMONARY ARTERIES: No pulmonary emboli.? THORACIC AORTA: No thoracic aortic aneurysm or dissection. LUNG: No focal consolidation, suspicious nodules, or suspicious masses. There are some scattered sub-4 mm densities present. Central airways are patent. No bronchial wall thickening or bronchiectasis appreciated. PLEURA: No pleural effusion or pneumothorax. MEDIASTINUM: Normal heart size.? No pericardial effusion.? No hilar or mediastinal lymphadenopathy.? No evidence of septal bowing or right heart strain. CORONARY ARTERY CALCIFICATION: None visualized on this study. CHEST WALL/AXILLA: No axillary or internal mammary lymphadenopathy. OSSEOUS STRUCTURES: No acute or suspicious osseous abnormality.? UPPER ABDOMEN: Unremarkable.? No reflux of contrast into the hepatic veins to suggest elevated right heart pressures. CT/CT angio chest PE protocol IMPRESSION: No evidence of acute pulmonary artery embolus. No thoracic aortic aneurysm or dissection. VTE: negative External Record Review External record reviewed: Inpatient record, Office record and Outpatient record Discharge Plan Discharge Clinical Impression: Chest pain Patient Disposition: Home, Self-Care Instructions: Chest Pain (DC) Additional Instructions: You were evaluated in the emergency department today for chest pain. Your CT scan does not show evidence of a pulmonary embolism (blood clot) in your lungs. Your evaluation has shown no signs of other medical conditions requiring emergent intervention at this time, however we recommend that you follow-up with your primary care physician and farm operations technical director. Return to the emergency department if you experience worsening or uncontrolled chest pain, shortness of breath, lightheadedness, feeling faint, loss of consciousness, nausea, vomiting, or any other concerning symptoms. Prescriptions: No Action Eliquis 5 mg Tablet 5 mg PO BID Qty: 60 3RF Referrals: Miranda Campa MD [Physician] -
[2022-10-09 11:35] VITALS: BP 115/64; PULSE 72; RESP 16; TEMP 36.9; O2SAT 98
[2022-10-09] MEDS: iohexoL 350 MG/ML 100 ML INFUS..BTL IV (12:14)
[2022-10-09 12:25] VITALS: BP 100/58; PULSE 79; RESP 14; TEMP 37.2; O2SAT 100
== END 2022-10-09 13:56 | disposition home or self-care (01) ==
PROVIDERS: Emergency Provider Student in an Organized Health Care Education/Training Program; PCP Internal Medicine Cardiovascular Disease
DX: R07.89 Other chest pain (principal); Z79.899 Other long term (current) drug therapy
CPT/HCPCS: 36415; 71275; 80053; 84484; 85025; 93005; 99284; 99285; Q9967

== ENCOUNTER → 2022-12-17 15:00 | Outpatient (BNV) | payer OTHER, SELFPAY | PROVIDERS: PCP Internal Medicine Cardiovascular Disease; Visit Provider Internal Medicine | DX: M79.604 Pain in right leg (principal); Z86.718 Personal history of other venous thrombosis and embolism | CPT/HCPCS: 99213; 99214 ==

== ENCOUNTER 2023-01-02 09:41 | Outpatient (REF) | payer OTHER, SELFPAY ==
[2023-01-02 10:23] LABS: D Dimer High Sensitivity 450 NG/ML
== END 2023-01-02 09:42 | disposition home or self-care (01) ==
LOC: HO.LAB 09:41
PROVIDERS: PCP Internal Medicine Cardiovascular Disease; Visit Provider Internal Medicine
DX: Z86.718 Personal history of other venous thrombosis and embolism (principal)
CPT/HCPCS: 36415; 85379

== ENCOUNTER 2023-01-02 12:43 | Outpatient (REF) | payer OTHER, SELFPAY ==
--- NOTE | ~2023-01-02 | US_ITS ---
EXAMINATION: US VENOUS ULTRASOUND WITH DOPPLER LOWER EXTREMITY, RIGHT CLINICAL INFORMATION: Right calf pain. Elevated d-dimer. COMPARISON: None available. TECHNIQUE: Ultrasound of the deep veins is performed from the hip to the calf with compression sonography and color and pulse Doppler assessment. Spectral analysis with color-flow imaging is performed. FINDINGS: There is normal venous compression and respiratory variation and augmented flow. The visualized common femoral vein, superficial femoral vein, profunda femoral vein, popliteal vein, and the trifurcation region shows no evidence of deep venous thrombosis. Targeted sonography was performed of the site of pain right proximal to mid lateral calf. There is no focal sonographic abnormality. If the patient's symptoms persist, followup ultrasound in 5 days 7 days might be of value to exclude proximal propagation from a non-visualized calf vein. US/US venous duplex LE RT IMPRESSION: No DVT demonstrated in the right lower extremity.
== END 2023-01-02 12:44 | disposition home or self-care (01) ==
LOC: HO.US 12:43
PROVIDERS: Visit Provider Internal Medicine Medical Oncology
DX: M79.604 Pain in right leg (principal); R60.0 Localized edema
CPT/HCPCS: 93971